=== PATIENT | female | born 1965 | race Two or more races ===

== ENCOUNTER 2019-02-16 18:05 | Emergency (ER) | payer OTHER ==
[~2019-02-16] VITALS: Ht 167.6 cm; Wt 79.4 kg
[2019-02-16] MEDS ORDERED: IV NS 0.9% 1,000 ML BAG IV ONE (18:30)
[2019-02-16 18:46] LABS: APPEARANCE,URINE Clear (CLEAR); BILIRUBIN,URINE Negative (NEGATIVE); BLOOD, URINE Negative Ery/uL (NEGATIVE); COLOR,URINE Yellow (YELLOW); KETONES,URINE Negative (NEGATIVE); LEUKOCYTE ESTERASE ,URINE Small (NEGATIVE); NITRITE, URINE Negative (NEGATIVE); PROTEIN,URINE Negative (NEGATIVE); UGLUCOSE Negative (NEGATIVE); UROBILINOGEN,URINE 0.2 EU/dL (0.2)
[2019-02-16] MEDS ORDERED: ONDANSETRON HCL/PF 4 MG/2 ML VIAL ONE (18:52)
[2019-02-16] MEDS ORDERED: MORPHINE SULFATE INJ 2 MG/ML DISP.SYRIN ONE (18:53)
[2019-02-16] MEDS ORDERED: MORPHINE SULFATE INJ 4 MG/ML DISP.SYRIN ONE (18:53)
[2019-02-16 18:54] LABS: BASOPHILS # (AUTO) 0.1 /CMM (0.0-0.2); BASOPHILS % (AUTO) 0.8 % (0.0-2.0); EOSINOPHILS % (AUTO) 1.4 % (0.0-6.0); HEMATOCRIT 42 % (33-45); HEMOGLOBIN 13.7 g/dL (11.5-14.8); LYMPHOCYTES # (AUTO) 2.8 /CMM (0.8-4.8); MEAN CORPUSCULAR HGB CONC 32 g/dl (31.0-36.0); MEAN CORPUSCULAR VOLUME 88 fL (82-100); MONOCYTES # (AUTO) 0.7 /CMM (0.1-1.30); MONOCYTES % (AUTO) 6.2 % (2.0-12.0); NEUTROPHILS # (AUTO) 7.4 /CMM (1.8-8.9); NEUTROPHILS % (AUTO) 66.6 % (43.0-81.0); PLATELET COUNT (AUTO) 276 /CMM (150-450); RED BLOOD CELL COUNT(AUTO) 4.78 MIL/uL (4.0-5.2); WHITE BLOOD COUNT (AUTO) 11.2 K/uL (4.3-11.0)
[2019-02-16 18:55] LABS: BACTERIA,URINE Few /HPF (None Seen); RBC,URINE NONE SEEN /HPF (0-2); SQUAMOUS EPITHELIAL CELL,UR Few /HPF (None Seen)
[2019-02-16] MEDS ORDERED: ONDANSETRON HCL/PF 4 MG/2 ML VIAL IVP ONE (19:00)
[2019-02-16] MEDS ORDERED: MORPHINE SULFATE INJ 2 MG/ML DISP.SYRIN IV ONE ×2 (19:00→19:30)
[2019-02-16 19:12] LABS: ALBUMIN 3.6 g/dL (3.4-5.0); BILIRUBIN,DIRECT 0.1 mg/dL (0.0-0.2); BILIRUBIN,TOTAL 0.3 mg/dL (0.2-1.0); CALCIUM, SERUM 9.1 mg/dL (8.5-10.1); CREATININE 0.7 mg/dL (0.6-1.3); POTASSIUM 3.8 mmol/L (3.5-5.1); TOTAL PROTEIN, SERUM 7.6 g/dL (6.4-8.2)
--- NOTE | 2019-02-16 19:17 | NUR ---
LUBA, FROM HOME, C/O ABD PAIN RADIATING TO R LOWER BACK x 3 DAYS. PT AAOX4, VSS. DENIES CP, SOB, DIZZINESS, N/V @ THIS TIME. PT SEEN & EVAL'D BY VIRGILIO HARRIS. WILL CONT TO MONITOR.
[2019-02-16 20:28] VITALS: BP 132/86
== END 2019-02-16 20:29 | disposition home or self-care (01) ==
LOC: ER 18:05
DX: N12 Tubulo-interstitial nephritis, not specified as acute or chronic (principal); I10 Essential (primary) hypertension
CPT/HCPCS: 36415; 74176; 76705; 80048; 80076; 81001; 83690; 84703; 85025; 87086; 96374; 96375; 99284; J2270; J2405; J7030; 81000-TC